=== PATIENT | female | born 1950 | race Asian ===

== ENCOUNTER 2020-11-26 08:45 | Outpatient (CLI) | payer OTHER | END 2020-11-26 18:57 | disposition home or self-care (01) | LOC: RESP 08:45 | PROVIDERS: ATTEND Internal Medicine Cardiovascular Disease | DX: I10 Essential (primary) hypertension (principal); R09.89 Other specified symptoms and signs involving the circulatory and respiratory systems ==

== ENCOUNTER 2021-11-22 08:36 | Outpatient (CLI) | payer OTHER | END 2021-11-22 18:50 | disposition home or self-care (01) | LOC: LABW 08:36 | PROVIDERS: ATTEND Specialist | DX: E11.9 Type 2 diabetes mellitus without complications (principal) | CPT/HCPCS: 36415; 80061; 80076 ==

== ENCOUNTER 2023-04-05 13:17 | Outpatient (CLI) | payer OTHER | END 2023-04-05 19:05 | disposition home or self-care (01) | LOC: RAD 13:17 | PROVIDERS: ATTEND Nurse Practitioner Family | DX: R93.7 Abnormal findings on diagnostic imaging of other parts of musculoskeletal system (principal); N95.8 Other specified menopausal and perimenopausal disorders ==